=== PATIENT | female | born 1990 | race Caucasian/White ===

== ENCOUNTER 2016-06-09 16:15 | Emergency (ER) | payer MEDICAID ==
[2016-06-09] MEDS ORDERED: KETOROLAC 60 MG/2 ML VIAL IM ONE (19:42)
== END 2016-06-09 20:29 | disposition home or self-care (01) ==
LOC: ER 16:15
DX: M94.0 Chondrocostal junction syndrome [Tietze] (principal); S29.012A Strain of muscle and tendon of back wall of thorax, initial encounter; S16.1XXA Strain of muscle, fascia and tendon at neck level, initial encounter; F17.210 Nicotine dependence, cigarettes, uncomplicated
CPT/HCPCS: 71020; 81001; 87088; 96372